=== PATIENT | female | born 2000 | race Caucasian/White ===

== ENCOUNTER 2024-09-26 07:19 | Emergency (ER) | payer BC ==
[2024-09-26] MEDS: Prochlorperazine 10 MG/2 ML SDV IM ONE (07:40)
[2024-09-26] MEDS: Ketorolac 30 MG/ML SDV IM ONE (07:40)
[2024-09-26] MEDS: diphenhydrAMINE 50 MG/ML SDV IM ONE (07:40)
[2024-09-26 08:23] LABS: ANION GAP 6.6 meq/L (7-15); BILIRUBIN TOTAL 0.5 mg/dL (0.2-1.0); CALCIUM 9.2 mg/dL (8.5-10.1); CARBON DIOXIDE,CO2 29.4 mmol/L (21.0-32.0); CREATININE 0.69 mg/dL (0.51-1.17); EST CRCL DRUG DOSING (CG) 125.42 mL/min; POTASSIUM,K 4.3 mmol/L (3.5-5.1); PROTEIN TOTAL,TP 7.7 g/dL (6.4-8.2)
[2024-09-26] MEDS ORDERED: Sodium Chloride 0.9% 10 ML Syringe FLUSH PRN (09:30)
[2024-09-26] MEDS: Iopamidol 755 Mg/ML 100 ML Bottle IVPUSH ONE (09:44)
== END 2024-09-26 11:45 | disposition home or self-care (01) ==
LOC: LL.ED 07:19
DX: G43.909 Migraine, unspecified, not intractable, without status migrainosus (principal); Z90.49 Acquired absence of other specified parts of digestive tract; Z91.011 Allergy to milk products; Z91.048 Other nonmedicinal substance allergy status; Z79.899 Other long term (current) drug therapy
CPT/HCPCS: 36415; 70496; 70498; 80053; 84703; 96372; 99284; J0780; J1200; J1885; Q9967